=== PATIENT | female | born 1955 | race Caucasian/White ===

== ENCOUNTER 2021-03-06 23:07 | Inpatient (IN) | payer OTHER ==
[~2021-03-06] VITALS: Ht 175.3 cm; Wt 95.3 kg
[2021-03-06] MEDS ORDERED: IV NORMAL SALINE 1000 ML BAG IV ONE (23:30)
[2021-03-06] MEDS ORDERED: FUROSEMIDE 20 MG/2 ML VIAL IV ONE (23:30)
[2021-03-06] MEDS ORDERED: CEFTRIAXONE 1 G in IV DEXTROSE 5% 50 ML IV ONE (23:30)
[2021-03-06] MEDS ORDERED: ACETAMINOPHEN ES 500 MG TABLET PO ONE (23:30)
[2021-03-07 00:06] LABS: HEMATOCRIT 41.9 % (31.2-41.9); MEAN CORPUSCULAR HEMOGLOBIN 29.1 uug (24.7-32.8); MEAN CORPUSCULAR VOLUME 88.6 fL (75.5-95.3); PLATELET COUNT (AUTO) 185 K/uL (179-408)
[2021-03-07] MEDS ORDERED: ACETAMINOPHEN ES 500 MG TABLET ONE (00:10)
[2021-03-07] MEDS ORDERED: CEFTRIAXONE /D5W 50ML IVPB **ER PYXIS IV ONE ×2 (00:15→22:32)
[2021-03-07] MEDS ORDERED: FUROSEMIDE 20 MG/2 ML VIAL ONE (00:16)
[2021-03-07 00:33] LABS: POTASSIUM 4.5 mmol/L (3.5-5.1)
[2021-03-07 00:48] LABS: BILIRUBIN,DIRECT 0.1 mg/dL (0.0-0.2); BILIRUBIN,TOTAL 0.4 mg/dL (0.2-1.0); TOTAL PROTEIN, SERUM 7.2 g/dL (6.4-8.2)
[2021-03-07 01:00] LABS: *BILIRUBIN,URIN NEGATIVE (NEGATIVE); *CLARITY,URINE CLEAR (CLEAR); *COLOR,URINE YELLOW (YELLOW); *KETONES,URINE NEGATIVE (NEGATIVE); *UROBILINOGEN,URINE 0.2 E.U./dl (NORMAL); LEUKOCYTE ESTERASE ,URINE NEGATIVE (NEGATIVE); NITRITE, URINE NEGATIVE (NEGATIVE); PH,URINE 5.5 (5.0-8.0); UGLUCOSE NEGATIVE (NEGATIVE)
[2021-03-07 01:07] LABS: *BLOOD, URINE TRACE (NEGATIVE)
[2021-03-07 01:08] LABS: BACTERIA,URINE NONE SEEN /HPF (NONE SEEN); SQUAMOUS EPITHELIAL CELL,UR FEW /HPF (NONE SEEN); WBC,URINE 0-3 /HPF (0-3)
--- NOTE | 2021-03-07 01:27 | NUR ---
[facility] WAS CALLED FOR ADMISSION. WAITING FOR CALLBACK.
--- NOTE | 2021-03-07 01:29 | NUR ---
DR SERRA CALLED BACK SPOKE WITH DR CAITLIN LEUNG TO ADMIT MS
--- NOTE | 2021-03-07 01:33 | NUR ---
Unable to get list of medications from patient, needs follow up.
[2021-03-07] MEDS ORDERED: MAGNESIUM HYDROXIDE 30 ML LIQUID UDC PO PRN (01:45)
[2021-03-07] MEDS ORDERED: Z GUARD REMEDY PASTE 57 GM TUBE TOP PRN (01:45)
[2021-03-07] MEDS ORDERED: ONDANSETRON 4 MG/2 ML VIAL IV PRN (01:45)
--- NOTE | 2021-03-07 02:06 | NUR ---
No available beds on the ms/tele unit at this time will keep patient in ER.
--- NOTE | 2021-03-07 04:00 | NUR ---
Patient is resting comfortably in bed with eyes closed
[2021-03-07] MEDS: PANTOPRAZOLE SODIUM 40 MG TABLET.DR PO SCH (07:08)
[2021-03-07] MEDS ORDERED: PANTOPRAZOLE SODIUM 40 MG TABLET.DR PO ONE ×2 (07:13→11:01)
--- NOTE | 2021-03-07 07:30 | NUR ---
Pt sleeping with NAD noted at this time, peding admission to tele, pt is held in ER as there are no tele beds available per manager night report. Pt also does not have a primary nurse assigned at this time because the ER is unstaffed.
--- NOTE | 2021-03-07 08:30 | NUR ---
Report given to TAWANNA Badillo.
--- NOTE | 2021-03-07 09:10 | NUR ---
No beds/staff available for transfer at this time.
--- NOTE | 2021-03-07 09:27 | NUR ---
Emptied Brady bag, output approximately = 1550 ml
[2021-03-07] MEDS: ACETAMINOPHEN 325 MG TABLET PO PRN (10:11)
--- NOTE | 2021-03-07 10:14 | NUR ---
Echo finished bedside, labs drawn. Pt A&Ox3 states she feels "vaguely crummy." Skin warm to touch, temp 100.2, oral. Admin 650mg Tylenol.
[2021-03-07] MEDS ORDERED: ACETAMINOPHEN 325 MG TABLET ONE (10:15)
[2021-03-07] MEDS ORDERED: MORPHINE SULFATE 2 MG/1 ML DISP.SYRIN IV PRN (10:45)
[2021-03-07] MEDS ORDERED: GUAIFENESIN/DEXTROMETHORPHAN 5 ML UDC PO PRN (10:45)
[2021-03-07] MEDS ORDERED: DEXTROSE 50% 50 ML DISP.SYRIN IV PRN (10:45)
[2021-03-07] MEDS ORDERED: LABETALOL HCL 100 MG/20 ML VIAL IV PRN (10:45)
[2021-03-07] MEDS ORDERED: hydrALAZINE HCL 20 MG/1 ML VIAL IV PRN (10:45)
[2021-03-07] MEDS ORDERED: VANCOMYCIN IV 1,000 MG in IV DEXTROSE 5% 250 ML IV ONE (11:00)
[2021-03-07] MEDS ORDERED: VANCOMYCIN IV 200 ML ONE (11:00)
[2021-03-07] MEDS: BLOOD SUGAR DIAGNOSTIC 1 EACH STRIP VI SCH ×3 (11:57→21:50)
--- NOTE | 2021-03-07 12:38 | NUR ---
Pt temp down to normal. Gave pt lunch tray.
[2021-03-07] MEDS ORDERED: MAGN400T8 PO (13:01)
[2021-03-07] MEDS ORDERED: ALEN70TA80 PO (13:01)
[2021-03-07] MEDS ORDERED: CYAN-51 PO (13:01)
[2021-03-07] MEDS ORDERED: LISI10TA29 PO (13:01)
[2021-03-07] MEDS ORDERED: CALC-168 PO (13:01)
[2021-03-07] MEDS ORDERED: ASCO-375 PO (13:01)
[2021-03-07] MEDS ORDERED: ALPR0.255 PO (13:01)
[2021-03-07] MEDS ORDERED: CHOL200059 PO (13:01)
[2021-03-07] MEDS ORDERED: TOLT4CAP PO (13:01)
[2021-03-07] MEDS ORDERED: POTA-10 PO (13:01)
[2021-03-07] MEDS ORDERED: DALF10TA PO (13:01)
[2021-03-07] MEDS ORDERED: DEXT5TAB15 PO ×2 (13:01)
[2021-03-07] MEDS ORDERED: METF-440 PO (13:01)
[2021-03-07] MEDS ORDERED: FURO20TA4 PO (13:01)
[2021-03-07] MEDS ORDERED: ZOLP5TAB8 PO (13:01)
[2021-03-07] MEDS ORDERED: SIMV-46 PO (13:04)
[2021-03-07] MEDS ORDERED: BACL20TA PO (13:04)
[2021-03-07] MEDS ORDERED: DESM0.2T23 PO (13:04)
[2021-03-07] MEDS ORDERED: DIME240C2 PO (13:04)
--- NOTE | 2021-03-07 13:20 | NUR ---
Pt forgot to mention that she was also having blurry vision since yesterday, close-up, not at distance. Dr. Chu informed.
[2021-03-07] MEDS ORDERED: ZOLPIDEM 5 MG TABLET PO PRN (14:15)
[2021-03-07] MEDS ORDERED: DIMETHYL FUMARATE 240 MG PO SCH (17:00)
[2021-03-07] MEDS: TOLTERODINE LA 2 MG CAP.SR.24H PO SCH (17:42)
[2021-03-07] MEDS: BACLOFEN 20 MG TABLET PO SCH ×2 (17:42→21:48)
[2021-03-07] MEDS ORDERED: TOLTERODINE LA 2 MG CAP.SR.24H PO ONE (17:44)
--- NOTE | 2021-03-07 19:05 | NUR ---
RECEIVED REPORT FROM TAWANNA YODER. VSS. PT A/O X4, DENIES ANY PAIN/DISCOMFORT. RESTING IN BED COMFORTABLY.
--- NOTE | 2021-03-07 20:43 | NUR ---
GAVE REPORT TO TAWANNA BARRERA.
[2021-03-07] MEDS ORDERED: DALFAMPRIDINE 10 MG PO SCH (21:00)
[2021-03-07] MEDS ORDERED: CEFTRIAXONE 1 G in IV DEXTROSE 5% 50 ML IV SCH (21:00)
--- NOTE | 2021-03-07 21:15 | NUR ---
Pt. admitted to TELE 311 , under care of Dx: sepsis Belongs List completed
--- NOTE | 2021-03-07 21:15 | NUR ---
Pt. admitted to TELE 311 , under care of Dr. Oleary Dx: sepsis Belongs List completed
[2021-03-07 22:00] VITALS: BP 104/41
[2021-03-07] MEDS: INSULIN REGULAR, HUMAN 300 UNIT/3 ML VIAL SQ PRN (22:00)
--- NOTE | 2021-03-07 22:01 | NUR ---
Patient brought to Tele unit from Er via gurney accompanied by Er nurse.Dx.of sepsis.Patient awake alert x4 .Denies SOB. On RA saturating well at 97 %.Denies pain at this time. Sinus Tachy on Tele. Brady catheter in place draining well with clear yellow output.Body assessment done noted with marco. lower ext edema .Rob wrapped up on both legs .Patient refused rob wrapped to be removed.Stated her doctor supposed to get it removed or on the weekend.Iv on right hand patent and intact . No s/s of infiltration. Administered Iv ATb as ordered. No a/r noted. VSs .Will continue to monitor.Call light with in reach.
[2021-03-07] MEDS: VANCOMYCIN IV 1,000 MG in IV DEXTROSE 5% 250 ML IV SCH (23:26)
[2021-03-08 00:40] VITALS: BP 126/51
[2021-03-08] MEDS: CEFTRIAXONE 1 G in IV DEXTROSE 5% 50 ML IV SCH (00:47)
[2021-03-08] MEDS: ACETAMINOPHEN 325 MG TABLET PO PRN (00:57)
[2021-03-08 04:10] VITALS: BP 100/50
[2021-03-08] MEDS: PANTOPRAZOLE SODIUM 40 MG TABLET.DR PO SCH (06:04)
[2021-03-08] MEDS: BLOOD SUGAR DIAGNOSTIC 1 EACH STRIP VI SCH ×4 (06:35→20:33)
[2021-03-08 06:40] LABS: HEMATOCRIT 37.3 % (31.2-41.9); MEAN CORPUSCULAR HEMOGLOBIN 29.5 uug (24.7-32.8); MEAN CORPUSCULAR VOLUME 88.1 fL (75.5-95.3); PLATELET COUNT (AUTO) 152 K/uL (179-408)
[2021-03-08 07:11] LABS: CREATININE 0.8 mg/dL (0.6-1.3); PHOSPHOROUS 2.6 mg/dL (2.5-4.9)
[2021-03-08 07:21] LABS: THYROID STIMULATING HORMONE 0.501 mIU/mL (0.358-3.740)
--- NOTE | 2021-03-08 08:00 | NUR ---
Noted JUDSON LE +4 edema. PT has an jean-claude wrapped around her legs. Pt refused to have the jean-claude wrap taken out to evaluate her skin. Discussed plan of care with pt re reducing her fluid intake pt agreeable with plan of care. Call light light is within reach.
[2021-03-08] MEDS: MAGNESIUM OXIDE 400 MG TABLET PO SCH (08:46)
[2021-03-08] MEDS: BACLOFEN 20 MG TABLET PO SCH ×4 (08:46→20:23)
[2021-03-08] MEDS: CYANOCOBALAMIN 1,000 MCG TABLET PO SCH (08:46)
[2021-03-08] MEDS: ASCORBIC ACID 500 MG TABLET PO SCH (08:46)
[2021-03-08] MEDS: FUROSEMIDE 20 MG TABLET PO SCH (08:46)
[2021-03-08] MEDS: DESMOPRESSIN 0.1 MG TABLET PO SCH (08:52)
[2021-03-08] MEDS: LISINOPRIL 10 MG TABLET PO SCH (08:52)
[2021-03-08] MEDS ORDERED: POTASSIUM CHLORIDE 20 MEQ POWDER PACKET PO SCH (09:00)
[2021-03-08] MEDS ORDERED: Medication Not On Formulary EA (Potassium Chloride (K-Dur) 10 MEQ) PO SCH (09:00)
[2021-03-08] MEDS ORDERED: POTASSIUM CHLORIDE 10 MEQ TAB.PRT.SR PO SCH (09:00)
[2021-03-08] MEDS: VANCOMYCIN IV 1,000 MG in IV DEXTROSE 5% 250 ML IV SCH ×2 (11:02→23:51)
[2021-03-08] MEDS: INSULIN REGULAR, HUMAN 300 UNIT/3 ML VIAL SQ PRN ×3 (11:18→20:39)
[2021-03-08 12:00] VITALS: BP 113/52
--- NOTE | 2021-03-08 12:07 | NUR ---
PT own meds ampyra and fumera sent for pharmacy to verify. Son at bedside. Call light is within reach.
[2021-03-08] MEDS: DIMETHYL FUMARATE 240 MG PO SCH ×2 (13:06→17:04)
[2021-03-08] MEDS: AMPYRA 10 MG PO SCH ×2 (13:06→20:24)
--- NOTE | 2021-03-08 15:00 | NUR ---
Heat CT done. IV pulled out by patient. restarted IV on left hand 22gauge with good blood back flow noted.
[2021-03-08 16:00] VITALS: BP 105/46
[2021-03-08] MEDS: TOLTERODINE LA 2 MG CAP.SR.24H PO SCH (17:03)
[2021-03-08] MEDS: ALPRAZOLAM 0.25 MG TABLET PO PRN (20:24)
[2021-03-08] MEDS: SIMVASTATIN 20 MG TABLET PO SCH (20:24)
[2021-03-08 20:37] VITALS: BP 101/45
[2021-03-09] MEDS: CEFTRIAXONE 1 G in IV DEXTROSE 5% 50 ML IV SCH (00:01)
[2021-03-09 00:20] VITALS: BP 98/54
[2021-03-09] MEDS: ALPRAZOLAM 0.25 MG TABLET PO PRN (02:51)
[2021-03-09 04:32] VITALS: BP 101/50
[2021-03-09] MEDS: PANTOPRAZOLE SODIUM 40 MG TABLET.DR PO SCH (06:39)
[2021-03-09] MEDS: BLOOD SUGAR DIAGNOSTIC 1 EACH STRIP VI SCH ×4 (06:41→21:17)
--- NOTE | 2021-03-09 08:00 | NUR ---
Reinforce to pt limit fluid intake. Pt is in no acute distress. Call light is within reach.
[2021-03-09] MEDS: BACLOFEN 20 MG TABLET PO SCH ×4 (08:57→21:13)
[2021-03-09] MEDS: CYANOCOBALAMIN 1,000 MCG TABLET PO SCH (08:57)
[2021-03-09] MEDS: FUROSEMIDE 20 MG TABLET PO SCH (08:57)
[2021-03-09] MEDS: MAGNESIUM OXIDE 400 MG TABLET PO SCH (08:58)
[2021-03-09] MEDS: POTASSIUM CHLORIDE 10 MEQ TAB.PRT.SR PO SCH (08:58)
[2021-03-09] MEDS: AMPYRA 10 MG PO SCH ×2 (08:58→21:13)
[2021-03-09] MEDS: DESMOPRESSIN 0.1 MG TABLET PO SCH (08:58)
[2021-03-09] MEDS: ASCORBIC ACID 500 MG TABLET PO SCH (08:58)
[2021-03-09] MEDS ORDERED: VANCOMYCIN IV 1,250 MG in IV DEXTROSE 5% 250 ML IV SCH (09:00)
[2021-03-09] MEDS: LISINOPRIL 10 MG TABLET PO SCH (09:00)
[2021-03-09] MEDS: INSULIN REGULAR, HUMAN 300 UNIT/3 ML VIAL SQ PRN ×4 (09:18→21:18)
[2021-03-09] MEDS: DIMETHYL FUMARATE 240 MG PO SCH ×2 (09:24→17:31)
[2021-03-09] MEDS ORDERED: ZOLPIDEM 5 MG TABLET PO PRN (10:30)
--- NOTE | 2021-03-09 11:22 | NUR ---
WOUND CARE CONSULT: PT HAD PREVIOUS COMPRESSION WRAPS ON HER LOWER LEGS WHICH WERE REMOVED REVEALING SOME SKIN DISCOLORATION AND EDEMA, NO OPEN WOUNDS. WILL SEE PRN.
[2021-03-09 12:01] VITALS: BP 100/58
[2021-03-09] MEDS: CLINDAMYCIN HCL 300 MG CAPSULE PO SCH ×3 (12:59→17:30)
--- NOTE | 2021-03-09 14:13 | NUR ---
gave 1st dose cleocin at 1200 will not repeat dose 1 hr after giving meds
[2021-03-09 16:01] VITALS: BP 105/51
[2021-03-09] MEDS ORDERED: LORAZEPAM 2 MG/1 ML VIAL IV PRN (17:15)
[2021-03-09] MEDS: TOLTERODINE LA 2 MG CAP.SR.24H PO SCH (17:30)
--- NOTE | 2021-03-09 18:00 | NUR ---
Pt picked up by ambulance for MRI of Brain w/wo. Pt agreeable with test. MRI Checklist done. Gave Ativan prior to leaving secondary to pt gets anxious on closed spaces. Pt refused bs coverage for BS 150. PT is in no acute distress. Call light is within reach.
[2021-03-09 20:06] VITALS: BP 116/65
[2021-03-09] MEDS: SIMVASTATIN 20 MG TABLET PO SCH (21:13)
[2021-03-10 00:06] VITALS: BP 119/58
[2021-03-10 04:12] VITALS: BP 121/60
[2021-03-10] MEDS: PANTOPRAZOLE SODIUM 40 MG TABLET.DR PO SCH (05:34)
[2021-03-10] MEDS: BLOOD SUGAR DIAGNOSTIC 1 EACH STRIP VI SCH ×2 (06:15→11:51)
--- NOTE | 2021-03-10 06:34 | NUR ---
Pt arrived back on the unit via jacqueline @[id number]. Pt is in no acute distress.VSS. Axox x4,able to make needs known. denies any pain at the moment. Denies SOB. On RA saturating well at 97 % Sinus Rhythm on Tele. Ate 50% dinner. All due medications administered and tolerated well. Administered Ambien per pt request, slept well. Brady catheter in place draining well with clear yellow output. marco. lower ext edema, elevated with pillows.IV on right hand flushed, patent and intact. No s/s of infiltration.Will continue to monitor.Call light with in reach. Call light is within reach.will endorse to oncoming nurse
--- NOTE | 2021-03-10 08:00 | NUR ---
Reinforce to pt limit fluid intake. Pt is in no acute distress. Call light is within reach.
[2021-03-10] MEDS: INSULIN REGULAR, HUMAN 300 UNIT/3 ML VIAL SQ PRN ×2 (08:18→12:09)
[2021-03-10] MEDS: POTASSIUM CHLORIDE 10 MEQ TAB.PRT.SR PO SCH (08:32)
[2021-03-10] MEDS: BACLOFEN 20 MG TABLET PO SCH ×4 (08:33→20:17)
[2021-03-10] MEDS: ASCORBIC ACID 500 MG TABLET PO SCH (08:33)
[2021-03-10] MEDS: CYANOCOBALAMIN 1,000 MCG TABLET PO SCH (08:33)
[2021-03-10] MEDS: FUROSEMIDE 20 MG TABLET PO SCH (08:33)
[2021-03-10] MEDS: MAGNESIUM OXIDE 400 MG TABLET PO SCH (08:33)
[2021-03-10] MEDS: LISINOPRIL 10 MG TABLET PO SCH (08:37)
[2021-03-10] MEDS: DIMETHYL FUMARATE 240 MG PO SCH ×2 (08:38→17:10)
[2021-03-10] MEDS: CLINDAMYCIN HCL 300 MG CAPSULE PO SCH ×3 (08:38→16:42)
[2021-03-10] MEDS: DESMOPRESSIN 0.1 MG TABLET PO SCH (08:39)
[2021-03-10] MEDS: AMPYRA 10 MG PO SCH ×2 (08:39→20:17)
[2021-03-10 11:58] VITALS: BP 103/49
[2021-03-10] MEDS ORDERED: Patient May Use Own Med- Md Ok PO ×2 (13:34)
[2021-03-10] MEDS ORDERED: ZOLP5TAB8 PO (13:34)
[2021-03-10] MEDS ORDERED: GUAI5SYR PO (13:34)
[2021-03-10] MEDS ORDERED: SIMV10TA98 PO (13:34)
[2021-03-10] MEDS ORDERED: ACET325T53 PO (13:34)
[2021-03-10] MEDS ORDERED: PANT40TA2 PO (13:34)
[2021-03-10 16:00] VITALS: BP_SYST 92; BP_DIAS 51; BP_DIAS 53
[2021-03-10] MEDS: TOLTERODINE LA 2 MG CAP.SR.24H PO SCH (16:41)
--- NOTE | 2021-03-10 19:49 | NUR ---
pt discharge to [facility] surgical floor pt to be admitted to aru per correctional casework specialist. Discharge instructions given to pt. Pt verbalized understanding. Discharge updated pictures needs to be done and endorsed to next shift. LE's less swollen from prior 2 days. f/c intact. Pt is in no acute distress. Vaccines pt to f/u with PMD. PT c/o constipattion earlier given MOM and had LARGE BM . MOM effective.
[2021-03-10] MEDS ORDERED: SIMVASTATIN 10 MG TABLET PO SCH (21:00)
[2021-03-14] MEDS ORDERED: ALENDRONATE SODIUM 70 MG TABLET PO SCH (06:00)
== END 2021-03-10 20:23 | DRG 871 ==
LOC: ER 23:10 → TRANSITION 03-07 03:57 → TELE3 03-07 20:44
PROVIDERS: ADMIT Internal Medicine; ATTEND Internal Medicine
DX: A41.9 Sepsis, unspecified organism (principal); R53.2 Functional quadriplegia; D68.59 Other primary thrombophilia; G35 Multiple sclerosis; E78.5 Hyperlipidemia, unspecified; Z20.822 Contact with and (suspected) exposure to COVID-19; R53.1 Weakness; I10 Essential (primary) hypertension; Z74.09 Other reduced mobility; I87.8 Other specified disorders of veins; Z79.84 Long term (current) use of oral hypoglycemic drugs; E11.9 Type 2 diabetes mellitus without complications; R60.9 Edema, unspecified
CPT/HCPCS: 36415; 51702; 70030-TC; 70450; 70553; 71045; 73590; 83605; 83735; 84100; 84443; 85025; 85651; 85730; 86140; 87040; 87086; 87400; 93005; 93307; 97161; A4663; A9150; G0378; J0696; J1940; J2060; J3370; J7030; J7040; J7060

== ENCOUNTER 2021-03-10 12:13 | Inpatient (IN) | payer OTHER ==
[~2021-03-10] VITALS: Ht 175.3 cm; Wt 96.2 kg
[~2021-03-10 12:13] MED LIST: ALEN70TA80 PO; ALPR0.255 PO; ASCO-375 PO; BACL20TA PO; CALC-168 PO; CHOL200059 PO; CYAN-51 PO; DALF10TA PO; DESM0.2T23 PO; DEXT5TAB15 PO; DIME240C2 PO; FURO20TA4 PO; LISI10TA29 PO; MAGN400T8 PO; METF-440 PO; POTA-10 PO; SIMV-46 PO; TOLT4CAP PO; ZOLP5TAB8 PO
[2021-03-10] MEDS ORDERED: Patient May Use Own Med- Md Ok PO ×2 (13:34)
[2021-03-10] MEDS ORDERED: ACET325T53 PO (13:34)
[2021-03-10] MEDS ORDERED: GUAI5SYR PO (13:34)
[2021-03-10] MEDS ORDERED: PANT40TA2 PO (13:34)
[2021-03-10] MEDS ORDERED: SIMV10TA98 PO (13:34)
[2021-03-10] MEDS ORDERED: ZOLP5TAB8 PO (13:34)
[2021-03-10 20:00] VITALS: BP 106/56
[2021-03-10] MEDS ORDERED: Z GUARD REMEDY PASTE 57 GM TUBE TOP PRN (21:15)
[2021-03-11] MEDS ORDERED: ZOLPIDEM 5 MG TABLET PO PRN (01:45)
--- NOTE | 2021-03-11 02:22 | NUR ---
Pt. admitted to ARU room 311, Dr. Huang made aware of admission and made aware of med recon. Dx: Sepsis generalized weakness possible MS exacerbation Belongs List completed, skin assessed, intact BLE edema and redness, sacral redness, pictures taken and placed in chart. marco. lower ext edema, elevated with pillows. IV on right hand flushed, patent and intact. No s/s of infiltration. Axox4 no acute distress noted.VSS All due medication administered and tolerated well.Brady cath intact and draining yellow urine. pt requested Ambien, administered. Needs attended too. On bedpan with BMx2. Will continue plan of care.
[2021-03-11 04:00] VITALS: BP 114/59
[2021-03-11] MEDS ORDERED: GUAIFENESIN/DEXTROMETHORPHAN 5 ML UDC PO PRN (07:15)
[2021-03-11 08:00] VITALS: BP 110/61
[2021-03-11] MEDS ORDERED: Medication Not On Formulary EA (Calcium Carbonate/Vitamin D3 (Calcium + Vitamin D Tablet PO SCH (09:00)
[2021-03-11] MEDS ORDERED: Medication Not On Formulary EA ([Patient May Use Own Med- Md Ok] 1 EA) PO SCH ×2 (09:00)
[2021-03-11] MEDS ORDERED: Medication Not On Formulary EA (Dalfampridine (Ampyra) 10 MG) PO SCH (09:00)
[2021-03-11] MEDS ORDERED: AMPYRA 10 MG PO SCH ×2 (09:00)
[2021-03-11] MEDS ORDERED: DESMOPRESSIN ACETATE PO SCH (09:00)
[2021-03-11] MEDS ORDERED: Medication Not On Formulary EA (Potassium Chloride (K-Dur) 10 MEQ) PO SCH (09:00)
[2021-03-11] MEDS: METFORMIN HCL 500 MG TABLET PO SCH ×2 (09:58→17:52)
[2021-03-11] MEDS: CHOLECALCIFEROL 1,000 UNIT TABLET PO SCH (09:59)
[2021-03-11] MEDS: MAGNESIUM OXIDE 400 MG TABLET PO SCH (09:59)
[2021-03-11] MEDS: CALCIUM CARB/VITAMIN D 500MG-200UNITS TABLET PO SCH (09:59)
[2021-03-11] MEDS: ASCORBIC ACID 500 MG TABLET PO SCH (09:59)
[2021-03-11] MEDS: TOLTERODINE LA 2 MG CAP.SR.24H PO SCH (09:59)
[2021-03-11] MEDS: CYANOCOBALAMIN 1,000 MCG TABLET PO SCH (10:00)
[2021-03-11] MEDS: FUROSEMIDE 20 MG TABLET PO SCH (10:00)
[2021-03-11] MEDS: POTASSIUM CHLORIDE 20 MEQ POWDER PACKET PO SCH (10:00)
[2021-03-11] MEDS: BACLOFEN 20 MG TABLET PO SCH ×4 (10:00→20:22)
[2021-03-11] MEDS: LISINOPRIL 10 MG TABLET PO SCH (10:10)
[2021-03-11] MEDS: DESMOPRESSIN 0.1 MG TABLET PO SCH (10:11)
[2021-03-11] MEDS: DIMETHYL FUMARATE 240 MG PO SCH ×2 (10:18→17:52)
[2021-03-11 12:00] VITALS: BP 105/60
--- NOTE | 2021-03-11 12:16 | NUR ---
INTERDISCIPLINARY TEAM CONFERENCE
[2021-03-11 15:59] VITALS: BP 106/63
[2021-03-11 20:20] VITALS: BP 114/62
[2021-03-11] MEDS: SIMVASTATIN 10 MG TABLET PO SCH (20:22)
[2021-03-12 04:10] VITALS: BP 115/54
[2021-03-12] MEDS: PANTOPRAZOLE SODIUM 40 MG TABLET.DR PO SCH (05:37)
[2021-03-12 06:18] LABS: HEMATOCRIT 39.3 % (31.2-41.9); MEAN CORPUSCULAR HEMOGLOBIN 29.1 uug (24.7-32.8); MEAN CORPUSCULAR VOLUME 87.9 fL (75.5-95.3); PLATELET COUNT (AUTO) 205 K/uL (179-408)
[2021-03-12 06:35] LABS: CREATININE 0.7 mg/dL (0.6-1.3); MAGNESIUM 2.1 mg/dL (1.8-2.4); PHOSPHOROUS 3.6 mg/dL (2.5-4.9); POTASSIUM 3.8 mmol/L (3.5-5.1)
--- NOTE | 2021-03-12 06:36 | NUR ---
Shift End Report: Slept well. All needs attended and met. No complaint presented.Continue care as planned.
[2021-03-12 08:03] VITALS: BP 123/64
[2021-03-12] MEDS: CALCIUM CARB/VITAMIN D 500MG-200UNITS TABLET PO SCH (08:31)
[2021-03-12] MEDS: POTASSIUM CHLORIDE 20 MEQ POWDER PACKET PO SCH (08:31)
[2021-03-12] MEDS: ASCORBIC ACID 500 MG TABLET PO SCH (08:31)
[2021-03-12] MEDS: CHOLECALCIFEROL 1,000 UNIT TABLET PO SCH (08:31)
[2021-03-12] MEDS: TOLTERODINE LA 2 MG CAP.SR.24H PO SCH (08:31)
[2021-03-12] MEDS: FUROSEMIDE 20 MG TABLET PO SCH (08:31)
[2021-03-12] MEDS: METFORMIN HCL 500 MG TABLET PO SCH ×2 (08:31→17:41)
[2021-03-12] MEDS: CYANOCOBALAMIN 1,000 MCG TABLET PO SCH (08:31)
[2021-03-12] MEDS: BACLOFEN 20 MG TABLET PO SCH ×4 (08:31→21:13)
[2021-03-12] MEDS: MAGNESIUM OXIDE 400 MG TABLET PO SCH (08:31)
[2021-03-12] MEDS: DESMOPRESSIN 0.1 MG TABLET PO SCH (08:32)
[2021-03-12] MEDS: DIMETHYL FUMARATE 240 MG PO SCH ×2 (08:32→17:41)
[2021-03-12] MEDS: LISINOPRIL 10 MG TABLET PO SCH (08:32)
[2021-03-12] MEDS: HYDROCORTISONE 1% CREAM 30 GM TUBE TP PRN (13:14)
[2021-03-12 16:27] VITALS: BP 102/53
[2021-03-12 20:00] VITALS: BP 100/46
[2021-03-12] MEDS: SIMVASTATIN 10 MG TABLET PO SCH (21:13)
[2021-03-12] MEDS: AMPYRA 10 MG PO SCH (21:14)
--- NOTE | 2021-03-12 21:47 | NUR ---
Patient AOX 4 no acute distress, no c/o pain all due medication administered as ordered. provided quite and calm environment. Brady cath intact and draining yellow urine. sleeping well. room visits done. will monitor patient.
[2021-03-13 04:20] VITALS: BP 107/61
[2021-03-13] MEDS: PANTOPRAZOLE SODIUM 40 MG TABLET.DR PO SCH (06:05)
--- NOTE | 2021-03-13 06:31 | NUR ---
Patient want to sleep in morning requested. Please do not disturb until 0800 am. Patient clean and dry, safety precautions observed. Respected patient right will endorse AM nurse accordingly.
[2021-03-13 08:00] VITALS: BP 117/58
--- NOTE | 2021-03-13 08:00 | NUR ---
awake alert and oriented x 4, very pleasnt, on room air, bilateral lower extremities swollen and red, kept on pillows, denies of pain at this time, needs attended, safety measures maintained
[2021-03-13] MEDS: METFORMIN HCL 500 MG TABLET PO SCH ×2 (08:18→17:06)
[2021-03-13] MEDS: CYANOCOBALAMIN 1,000 MCG TABLET PO SCH (08:19)
[2021-03-13] MEDS: FUROSEMIDE 20 MG TABLET PO SCH (08:19)
[2021-03-13] MEDS: CALCIUM CARB/VITAMIN D 500MG-200UNITS TABLET PO SCH (08:19)
[2021-03-13] MEDS: BACLOFEN 20 MG TABLET PO SCH ×4 (08:19→19:58)
[2021-03-13] MEDS: TOLTERODINE LA 2 MG CAP.SR.24H PO SCH (08:19)
[2021-03-13] MEDS: CHOLECALCIFEROL 1,000 UNIT TABLET PO SCH (08:19)
[2021-03-13] MEDS: ASCORBIC ACID 500 MG TABLET PO SCH (08:19)
[2021-03-13] MEDS: MAGNESIUM OXIDE 400 MG TABLET PO SCH (08:19)
[2021-03-13] MEDS: AMPYRA 10 MG PO SCH ×2 (08:20→19:58)
[2021-03-13] MEDS: LISINOPRIL 10 MG TABLET PO SCH (08:20)
[2021-03-13] MEDS: DIMETHYL FUMARATE 240 MG PO SCH ×2 (08:20→16:52)
[2021-03-13] MEDS: POTASSIUM CHLORIDE 20 MEQ POWDER PACKET PO SCH (08:21)
[2021-03-13] MEDS: DESMOPRESSIN 0.1 MG TABLET PO SCH (08:21)
[2021-03-13] MEDS: HYDROCORTISONE 1% CREAM 30 GM TUBE TP PRN ×3 (08:22→19:59)
--- NOTE | 2021-03-13 12:31 | NUR ---
INDIVIDUALIZED PLAN OF CARE
--- NOTE | 2021-03-13 13:56 | NUR ---
visitors in the room
[2021-03-13 16:00] VITALS: BP 101/52
--- NOTE | 2021-03-13 18:13 | NUR ---
no distress noted, all needs attended and met, participated with her rehab, call light within reach
[2021-03-13] MEDS: SIMVASTATIN 10 MG TABLET PO SCH (19:58)
[2021-03-13 20:00] VITALS: BP 96/49
[2021-03-14] MEDS: ZOLPIDEM 5 MG TABLET PO PRN (01:09)
[2021-03-14 04:00] VITALS: BP 114/61
[2021-03-14] MEDS: ALENDRONATE SODIUM 70 MG TABLET PO SCH (05:04)
[2021-03-14] MEDS: PANTOPRAZOLE SODIUM 40 MG TABLET.DR PO SCH (06:05)
[2021-03-14 08:06] VITALS: BP 111/52
[2021-03-14] MEDS: CYANOCOBALAMIN 1,000 MCG TABLET PO SCH (08:37)
[2021-03-14] MEDS: CHOLECALCIFEROL 1,000 UNIT TABLET PO SCH (08:37)
[2021-03-14] MEDS: POTASSIUM CHLORIDE 10 MEQ TAB.PRT.SR PO SCH (08:37)
[2021-03-14] MEDS: CALCIUM CARB/VITAMIN D 500MG-200UNITS TABLET PO SCH (08:38)
[2021-03-14] MEDS: METFORMIN HCL 500 MG TABLET PO SCH ×2 (08:38→17:03)
[2021-03-14] MEDS: FUROSEMIDE 20 MG TABLET PO SCH (08:38)
[2021-03-14] MEDS: BACLOFEN 20 MG TABLET PO SCH ×4 (08:38→21:08)
[2021-03-14] MEDS: MAGNESIUM OXIDE 400 MG TABLET PO SCH (08:39)
[2021-03-14] MEDS: LISINOPRIL 10 MG TABLET PO SCH (08:39)
[2021-03-14] MEDS: TOLTERODINE LA 2 MG CAP.SR.24H PO SCH (08:39)
[2021-03-14] MEDS: ASCORBIC ACID 500 MG TABLET PO SCH (08:40)
[2021-03-14] MEDS: DESMOPRESSIN 0.1 MG TABLET PO SCH (08:43)
[2021-03-14] MEDS: AMPYRA 10 MG PO SCH ×2 (08:44→21:07)
[2021-03-14] MEDS: DIMETHYL FUMARATE 240 MG PO SCH ×2 (08:45→16:48)
[2021-03-14 15:28] VITALS: BP 114/63
--- NOTE | 2021-03-14 15:50 | NUR ---
patient is alert, oriented x4, no distress noted, tolerated PT, OT services well.
--- NOTE | 2021-03-14 16:08 | NUR ---
INDIVIDUALIZED PLAN OF CARE
[2021-03-14 20:28] VITALS: BP 119/53
[2021-03-14] MEDS: SIMVASTATIN 10 MG TABLET PO SCH (21:08)
--- NOTE | 2021-03-14 21:41 | NUR ---
Patient on bed watching TV upon initial rounds, alert and oriented x4. On RA with no respiratory distress noted. Heplock on R FA remains patent, no redness or swelling. No c/o pain or discomforts at this time. Due medications given and tolerated well. Received Ampyra 10 mg #60 from pt, will give to pharmacy vega AM. All needs attended. Call light and urinal placed within reach. Will continue to monitor. Addendum: 03/14/21 at 2145 by PATRICIA JIMENEZ RN Correction: Call light placed within reach.
[2021-03-15] MEDS: ALPRAZOLAM 0.25 MG TABLET PO PRN (04:21)
[2021-03-15 04:30] VITALS: BP 121/53
[2021-03-15] MEDS: PANTOPRAZOLE SODIUM 40 MG TABLET.DR PO SCH (06:12)
--- NOTE | 2021-03-15 06:48 | NUR ---
Patient slept throughout the night, easily arousable for care. On RA with no respiratory distress noted. No c/o pain or discomfort at this time. Xanax given PRN per pt request, tolerated well. All needs attended. Call light placed within reach. Frequent visual checks done. Will endorse to next shift for continuity of care.
--- NOTE | 2021-03-15 07:15 | NUR ---
Patient denies pain at this time. IV line intact. FC draining urine. Call light within reach.No distress identified. Will continue to monitor.
[2021-03-15 08:00] VITALS: BP 114/56
[2021-03-15] MEDS: AMPYRA 10 MG PO SCH ×3 (09:00→20:39)
[2021-03-15] MEDS: CHOLECALCIFEROL 1,000 UNIT TABLET PO SCH (11:16)
[2021-03-15] MEDS: MAGNESIUM OXIDE 400 MG TABLET PO SCH (11:17)
[2021-03-15] MEDS: CALCIUM CARB/VITAMIN D 500MG-200UNITS TABLET PO SCH (11:17)
[2021-03-15] MEDS: BACLOFEN 20 MG TABLET PO SCH ×4 (11:17→20:39)
[2021-03-15] MEDS: FUROSEMIDE 20 MG TABLET PO SCH (11:17)
[2021-03-15] MEDS: METFORMIN HCL 500 MG TABLET PO SCH ×2 (11:17→16:57)
[2021-03-15] MEDS: DIMETHYL FUMARATE 240 MG PO SCH ×2 (11:17→16:58)
[2021-03-15] MEDS: ASCORBIC ACID 500 MG TABLET PO SCH (11:18)
[2021-03-15] MEDS: CYANOCOBALAMIN 1,000 MCG TABLET PO SCH (11:18)
[2021-03-15] MEDS: TOLTERODINE LA 2 MG CAP.SR.24H PO SCH (11:18)
[2021-03-15] MEDS: LISINOPRIL 10 MG TABLET PO SCH (11:18)
[2021-03-15] MEDS: POTASSIUM CHLORIDE 10 MEQ TAB.PRT.SR PO SCH (11:18)
[2021-03-15] MEDS: DESMOPRESSIN 0.1 MG TABLET PO SCH (11:20)
[2021-03-15 16:32] VITALS: BP 104/50
--- NOTE | 2021-03-15 18:35 | NUR ---
Patient report discomfort on her left thigh, resolved after repositioning. BM noted during the shift. All due meds given. All needs attended. Kept comfortable. Call light within reach. Frequent checks done. Will continue to monitor for any significant changes.
[2021-03-15 20:15] VITALS: BP 112/44
[2021-03-15] MEDS: SIMVASTATIN 10 MG TABLET PO SCH (20:39)
[2021-03-16 04:12] VITALS: BP 114/58
--- NOTE | 2021-03-16 06:30 | NUR ---
Patient stated cramps on her legs was better, denies discomfort at the end of the shift. Frequent monitoring done. All needs attended and due meds given as ordered. Will endorse to the next shift. Addendum: 03/16/21 at 0654 by ROMARIO RAMIREZ RN Patient refused to take Pantoprazole for AM medication. Will endorse to the next shift.
[2021-03-16] MEDS: PANTOPRAZOLE SODIUM 40 MG TABLET.DR PO SCH (07:00)
[2021-03-16 08:00] VITALS: BP 114/59
[2021-03-16] MEDS: TOLTERODINE LA 2 MG CAP.SR.24H PO SCH (09:26)
[2021-03-16] MEDS: METFORMIN HCL 500 MG TABLET PO SCH ×2 (09:26→18:27)
[2021-03-16] MEDS: CALCIUM CARB/VITAMIN D 500MG-200UNITS TABLET PO SCH (09:26)
[2021-03-16] MEDS: ASCORBIC ACID 500 MG TABLET PO SCH (09:26)
[2021-03-16] MEDS: BACLOFEN 20 MG TABLET PO SCH ×4 (09:27→20:36)
[2021-03-16] MEDS: MAGNESIUM OXIDE 400 MG TABLET PO SCH (09:27)
[2021-03-16] MEDS: FUROSEMIDE 20 MG TABLET PO SCH (09:27)
[2021-03-16] MEDS: CYANOCOBALAMIN 1,000 MCG TABLET PO SCH (09:27)
[2021-03-16] MEDS: POTASSIUM CHLORIDE 10 MEQ TAB.PRT.SR PO SCH (09:27)
[2021-03-16] MEDS: AMPYRA 10 MG PO SCH ×2 (09:32→20:36)
[2021-03-16] MEDS: DIMETHYL FUMARATE 240 MG PO SCH ×2 (09:32→18:28)
[2021-03-16] MEDS: DESMOPRESSIN 0.1 MG TABLET PO SCH (09:33)
[2021-03-16] MEDS: LISINOPRIL 10 MG TABLET PO SCH (09:34)
[2021-03-16] MEDS: CHOLECALCIFEROL 1,000 UNIT TABLET PO SCH (10:05)
[2021-03-16 16:39] VITALS: BP 105/50
--- NOTE | 2021-03-16 19:30 | NUR ---
RECEIVED PT AWAKE, ALERT AND ORIENTEDX4. PT IN NO ACUTE RESPIRATORY DISTRESS. IV INTACT. PT COMPLAIN OF LEG PAIN. SAFETY AND COMFORT PROVIDED. WILL CONTINUE TO MONITOR.
--- NOTE | 2021-03-16 19:31 | NUR ---
FERNANDES CATHETER INTACT AND DRAINING WELL. REPOSITIONING OF PT LEG HELP IN HER LEG PAIN.
[2021-03-16] MEDS: SIMVASTATIN 10 MG TABLET PO SCH (20:36)
[2021-03-16 20:49] VITALS: BP 100/43
[2021-03-16] MEDS: ZOLPIDEM 5 MG TABLET PO PRN (22:39)
--- NOTE | 2021-03-16 23:45 | NUR ---
Ativan given prn at 2239h. Pt tolerated it well. Pt sleeping. Will continue to monitor.
[2021-03-17 04:35] VITALS: BP 103/55
--- NOTE | 2021-03-17 05:45 | NUR ---
PT SLEPT INTERMITTENTLY. PT IN NO ACUTE DISTRESS. IV INTACT. SAFETY AND COMFORT PROVIDED. PT TURNED AND REPOSITIONED. SAFETY AND COMFORT PROVIDED. WILL ENDORSE TO INCOMING NURSE FOR CONTINUITY OF CARE.
[2021-03-17] MEDS: PANTOPRAZOLE SODIUM 40 MG TABLET.DR PO SCH (06:04)
[2021-03-17 07:58] VITALS: BP 108/55
[2021-03-17] MEDS: METFORMIN HCL 500 MG TABLET PO SCH ×2 (08:29→19:02)
[2021-03-17] MEDS: MAGNESIUM OXIDE 400 MG TABLET PO SCH (08:29)
[2021-03-17] MEDS: POTASSIUM CHLORIDE 10 MEQ TAB.PRT.SR PO SCH (08:29)
[2021-03-17] MEDS: CHOLECALCIFEROL 1,000 UNIT TABLET PO SCH (08:29)
[2021-03-17] MEDS: LISINOPRIL 10 MG TABLET PO SCH (08:29)
[2021-03-17] MEDS: ASCORBIC ACID 500 MG TABLET PO SCH (08:29)
[2021-03-17] MEDS: CYANOCOBALAMIN 1,000 MCG TABLET PO SCH (08:29)
[2021-03-17] MEDS: FUROSEMIDE 20 MG TABLET PO SCH (08:29)
[2021-03-17] MEDS: CALCIUM CARB/VITAMIN D 500MG-200UNITS TABLET PO SCH (08:29)
[2021-03-17] MEDS: TOLTERODINE LA 2 MG CAP.SR.24H PO SCH (08:29)
[2021-03-17] MEDS: BACLOFEN 20 MG TABLET PO SCH ×4 (08:29→20:07)
[2021-03-17] MEDS: AMPYRA 10 MG PO SCH ×2 (08:30→20:07)
[2021-03-17] MEDS: DIMETHYL FUMARATE 240 MG PO SCH ×2 (08:30→16:12)
[2021-03-17] MEDS: DESMOPRESSIN 0.1 MG TABLET PO SCH (08:31)
[2021-03-17 16:00] VITALS: BP 111/59
[2021-03-17] MEDS: SIMVASTATIN 10 MG TABLET PO SCH (20:07)
--- NOTE | 2021-03-18 06:01 | NUR ---
Pt denies pain or SOB. No distress noted. Pt slept throughout the night. Able to make needs known. Safety and comfort provided. No other issues or concerns at this time, will endorse to day shift.
[2021-03-18] MEDS: ALPRAZOLAM 0.25 MG TABLET PO PRN (06:19)
[2021-03-18] MEDS: PANTOPRAZOLE SODIUM 40 MG TABLET.DR PO SCH (06:19)
[2021-03-18 08:00] VITALS: BP 125/62
[2021-03-18] MEDS: CYANOCOBALAMIN 1,000 MCG TABLET PO SCH (09:25)
[2021-03-18] MEDS: ASCORBIC ACID 500 MG TABLET PO SCH (09:25)
[2021-03-18] MEDS: TOLTERODINE LA 2 MG CAP.SR.24H PO SCH (09:25)
[2021-03-18] MEDS: MAGNESIUM OXIDE 400 MG TABLET PO SCH (09:25)
[2021-03-18] MEDS: BACLOFEN 20 MG TABLET PO SCH ×4 (09:26→20:37)
[2021-03-18] MEDS: METFORMIN HCL 500 MG TABLET PO SCH ×2 (09:26→17:42)
[2021-03-18] MEDS: CHOLECALCIFEROL 1,000 UNIT TABLET PO SCH (09:26)
[2021-03-18] MEDS: CALCIUM CARB/VITAMIN D 500MG-200UNITS TABLET PO SCH (09:26)
[2021-03-18] MEDS: LISINOPRIL 10 MG TABLET PO SCH (09:27)
[2021-03-18] MEDS: FUROSEMIDE 20 MG TABLET PO SCH (09:27)
[2021-03-18] MEDS: DESMOPRESSIN 0.1 MG TABLET PO SCH (09:28)
[2021-03-18] MEDS: AMPYRA 10 MG PO SCH ×2 (09:29→20:37)
[2021-03-18] MEDS: DIMETHYL FUMARATE 240 MG PO SCH ×2 (09:29→17:43)
[2021-03-18] MEDS: POTASSIUM CHLORIDE 10 MEQ TAB.PRT.SR PO SCH (09:33)
--- NOTE | 2021-03-18 13:33 | NUR ---
INTERDISCIPLINARY TEAM CONFERENCE
[2021-03-18 16:04] VITALS: BP 101/53
[2021-03-18] MEDS: SIMVASTATIN 10 MG TABLET PO SCH (20:37)
[2021-03-18 20:41] VITALS: BP 104/43
--- NOTE | 2021-03-18 22:56 | NUR ---
Patient on bed watching TV, alert and oriented x4. On RA with no respiratory distress noted. No c/o pain or discomforts at this time. Due medications given and tolerated well. All needs attended. Call light placed within reach. Will continue to monitor.
[2021-03-19 04:25] VITALS: BP 102/52
[2021-03-19] MEDS: ALPRAZOLAM 0.25 MG TABLET PO PRN (04:40)
[2021-03-19] MEDS: PANTOPRAZOLE SODIUM 40 MG TABLET.DR PO SCH (06:00)
--- NOTE | 2021-03-19 06:36 | NUR ---
Patient slept throughout the night, easily arousable for care. On RA with no respiratory distress noted. No c/o pain or discomforts at this time. Xanax PRN given as requested. All needs attended. Call light placed within reach. Frequent visual checks done. Will endorse for continuity of care.
[2021-03-19] MEDS: ASCORBIC ACID 500 MG TABLET PO SCH (08:16)
[2021-03-19] MEDS: POTASSIUM CHLORIDE 10 MEQ TAB.PRT.SR PO SCH (08:16)
[2021-03-19] MEDS: TOLTERODINE LA 2 MG CAP.SR.24H PO SCH (08:16)
[2021-03-19] MEDS: CHOLECALCIFEROL 1,000 UNIT TABLET PO SCH (08:16)
[2021-03-19] MEDS: AMPYRA 10 MG PO SCH ×2 (08:16→20:14)
[2021-03-19] MEDS: DESMOPRESSIN 0.1 MG TABLET PO SCH (08:16)
[2021-03-19] MEDS: DIMETHYL FUMARATE 240 MG PO SCH ×2 (08:16→17:01)
[2021-03-19] MEDS: CYANOCOBALAMIN 1,000 MCG TABLET PO SCH (08:16)
[2021-03-19] MEDS: BACLOFEN 20 MG TABLET PO SCH ×4 (08:16→20:14)
[2021-03-19] MEDS: FUROSEMIDE 20 MG TABLET PO SCH (08:17)
[2021-03-19] MEDS: CALCIUM CARB/VITAMIN D 500MG-200UNITS TABLET PO SCH (08:17)
[2021-03-19] MEDS: MAGNESIUM OXIDE 400 MG TABLET PO SCH (08:17)
[2021-03-19] MEDS: METFORMIN HCL 500 MG TABLET PO SCH ×2 (08:17→17:01)
[2021-03-19 08:23] VITALS: BP 92/58
[2021-03-19] MEDS: LISINOPRIL 10 MG TABLET PO SCH (09:00)
[2021-03-19 11:27] VITALS: BP 96/57
[2021-03-19 15:20] VITALS: BP 114/59
[2021-03-19 20:00] VITALS: BP 111/58
[2021-03-19] MEDS: SIMVASTATIN 10 MG TABLET PO SCH (20:14)
[2021-03-19] MEDS: MELATONIN 3 MG TABLET PO PRN (21:08)
--- NOTE | 2021-03-19 21:18 | NUR ---
Received pt on bed, alert and oriented x4. On RA with no respiratory distress noted. No c/o pain or discomfort at this time. Due medications given and tolerated well. Melatonin PRN given per requested. Assisted in turning and repositioning. All needs attended. Call light placed within reach. Will continue to monitor.
[2021-03-20 04:00] VITALS: BP 116/55
[2021-03-20] MEDS: PANTOPRAZOLE SODIUM 40 MG TABLET.DR PO SCH (06:00)
--- NOTE | 2021-03-20 06:24 | NUR ---
Patient verbalized sleeping longer after Melatonin PRN given. On RA with no respiratory distress noted. No c/o pain or discomforts at this time. All needs attended. Call light placed within reach. Frequent visual checks done. Will endorse for continuity of care.
[2021-03-20 07:57] VITALS: BP 106/56
[2021-03-20] MEDS: LISINOPRIL 10 MG TABLET PO SCH (08:10)
[2021-03-20] MEDS: CYANOCOBALAMIN 1,000 MCG TABLET PO SCH (08:10)
[2021-03-20] MEDS: MAGNESIUM OXIDE 400 MG TABLET PO SCH (08:10)
[2021-03-20] MEDS: TOLTERODINE LA 2 MG CAP.SR.24H PO SCH (08:10)
[2021-03-20] MEDS: ASCORBIC ACID 500 MG TABLET PO SCH (08:10)
[2021-03-20] MEDS: METFORMIN HCL 500 MG TABLET PO SCH ×2 (08:10→17:10)
[2021-03-20] MEDS: CHOLECALCIFEROL 1,000 UNIT TABLET PO SCH (08:10)
[2021-03-20] MEDS: BACLOFEN 20 MG TABLET PO SCH ×4 (08:10→20:44)
[2021-03-20] MEDS: POTASSIUM CHLORIDE 10 MEQ TAB.PRT.SR PO SCH (08:10)
[2021-03-20] MEDS: CALCIUM CARB/VITAMIN D 500MG-200UNITS TABLET PO SCH (08:10)
[2021-03-20] MEDS: FUROSEMIDE 20 MG TABLET PO SCH (08:11)
[2021-03-20] MEDS: AMPYRA 10 MG PO SCH ×2 (08:11→20:47)
[2021-03-20] MEDS: DESMOPRESSIN 0.1 MG TABLET PO SCH (08:11)
[2021-03-20] MEDS: DIMETHYL FUMARATE 240 MG PO SCH ×2 (08:11→16:46)
[2021-03-20 16:02] VITALS: BP 121/54
[2021-03-20] MEDS: MIRALAX 17 GM POWD.PACK PO SCH (16:18)
[2021-03-20] MEDS: SIMVASTATIN 10 MG TABLET PO SCH (20:44)
[2021-03-20] MEDS: DOCUSATE SODIUM 100 MG CAPSULE PO SCH (20:45)
[2021-03-20] MEDS: MELATONIN 3 MG TABLET PO PRN (20:49)
[2021-03-21] MEDS: ALPRAZOLAM 0.25 MG TABLET PO PRN (03:06)
[2021-03-21] MEDS: PANTOPRAZOLE SODIUM 40 MG TABLET.DR PO SCH (06:30)
[2021-03-21] MEDS: ALENDRONATE SODIUM 70 MG TABLET PO SCH (06:30)
[2021-03-21] MEDS: CALCIUM CARB/VITAMIN D 500MG-200UNITS TABLET PO SCH (08:07)
[2021-03-21] MEDS: BACLOFEN 20 MG TABLET PO SCH ×4 (08:07→20:16)
[2021-03-21] MEDS: DIMETHYL FUMARATE 240 MG PO SCH ×2 (08:07→16:21)
[2021-03-21] MEDS: AMPYRA 10 MG PO SCH ×2 (08:07→20:20)
[2021-03-21] MEDS: TOLTERODINE LA 2 MG CAP.SR.24H PO SCH (08:07)
[2021-03-21] MEDS: FUROSEMIDE 20 MG TABLET PO SCH (08:07)
[2021-03-21] MEDS: METFORMIN HCL 500 MG TABLET PO SCH ×2 (08:07→17:04)
[2021-03-21] MEDS: CYANOCOBALAMIN 1,000 MCG TABLET PO SCH (08:07)
[2021-03-21] MEDS: DESMOPRESSIN 0.1 MG TABLET PO SCH (08:07)
[2021-03-21] MEDS: MIRALAX 17 GM POWD.PACK PO SCH (08:07)
[2021-03-21] MEDS: ASCORBIC ACID 500 MG TABLET PO SCH (08:08)
[2021-03-21] MEDS: LISINOPRIL 10 MG TABLET PO SCH (08:08)
[2021-03-21] MEDS: CHOLECALCIFEROL 1,000 UNIT TABLET PO SCH (08:08)
[2021-03-21] MEDS: POTASSIUM CHLORIDE 10 MEQ TAB.PRT.SR PO SCH (08:08)
[2021-03-21] MEDS: MAGNESIUM OXIDE 400 MG TABLET PO SCH (08:08)
[2021-03-21 08:24] VITALS: BP 119/68
[2021-03-21 14:43] VITALS: BP 111/60
--- NOTE | 2021-03-21 19:30 | NUR ---
RECEIVED PT AWAKE, ALERT AND ORIENTEDX4. PT IN NO ACUTE DISTRESS. PT CAN MAKE HER NEEDS KNOWN. SAFETY AND COMFORT PROVIDED. WILL CONTINUE TO MONITOR.
[2021-03-21 20:16] VITALS: BP 98/44
[2021-03-21] MEDS: DOCUSATE SODIUM 100 MG CAPSULE PO SCH (20:16)
[2021-03-21] MEDS: SIMVASTATIN 10 MG TABLET PO SCH (20:17)
[2021-03-22] MEDS: MELATONIN 3 MG TABLET PO PRN (02:32)
[2021-03-22 05:03] VITALS: BP 107/55
--- NOTE | 2021-03-22 06:09 | NUR ---
PT SLEEP INTERMITTENTLY. PT IN NO ACUTE DISTRESS. PRESCRIBED MEDICATION GIVEN AND PT TOLERATED IT WELL SAFETY AND COMFORT PROVIDED. WILL ENDORSE TO INCOMING NURSE FOR CONTINUITY OF CARE.
[2021-03-22] MEDS: PANTOPRAZOLE SODIUM 40 MG TABLET.DR PO SCH (06:16)
[2021-03-22 08:00] VITALS: BP 103/58
[2021-03-22] MEDS: DIMETHYL FUMARATE 240 MG PO SCH ×2 (08:06→16:36)
[2021-03-22] MEDS: POTASSIUM CHLORIDE 10 MEQ TAB.PRT.SR PO SCH (08:06)
[2021-03-22] MEDS: METFORMIN HCL 500 MG TABLET PO SCH ×2 (08:06→17:06)
[2021-03-22] MEDS: ASCORBIC ACID 500 MG TABLET PO SCH (08:06)
[2021-03-22] MEDS: DESMOPRESSIN 0.1 MG TABLET PO SCH (08:06)
[2021-03-22] MEDS: AMPYRA 10 MG PO SCH ×2 (08:06→21:00)
[2021-03-22] MEDS: MAGNESIUM OXIDE 400 MG TABLET PO SCH (08:06)
[2021-03-22] MEDS: BACLOFEN 20 MG TABLET PO SCH ×4 (08:06→21:00)
[2021-03-22] MEDS: CYANOCOBALAMIN 1,000 MCG TABLET PO SCH (08:06)
[2021-03-22] MEDS: TOLTERODINE LA 2 MG CAP.SR.24H PO SCH (08:06)
[2021-03-22] MEDS: CHOLECALCIFEROL 1,000 UNIT TABLET PO SCH (08:06)
[2021-03-22] MEDS: CALCIUM CARB/VITAMIN D 500MG-200UNITS TABLET PO SCH (08:06)
[2021-03-22] MEDS: FUROSEMIDE 20 MG TABLET PO SCH (08:07)
[2021-03-22] MEDS: MIRALAX 17 GM POWD.PACK PO SCH (08:07)
[2021-03-22] MEDS: LISINOPRIL 10 MG TABLET PO SCH (08:07)
[2021-03-22 16:18] VITALS: BP 91/41
--- NOTE | 2021-03-22 19:25 | NUR ---
RECEIVED PT AWAKE, ALERT AND ORIENTEDX4. PT IN NO ACUTE DISTRESS. SAFETY AND COMFORT PROVIDED. WILL CONTINUE TO MONITOR.
[2021-03-22 20:06] VITALS: BP 98/55
[2021-03-22] MEDS: SIMVASTATIN 10 MG TABLET PO SCH (21:01)
[2021-03-22] MEDS: DOCUSATE SODIUM 100 MG CAPSULE PO SCH (21:01)
[2021-03-22] MEDS: ALPRAZOLAM 0.25 MG TABLET PO PRN (21:13)
[2021-03-22] MEDS: ACETAMINOPHEN 325 MG TABLET PO PRN (21:13)
[2021-03-23] MEDS: ZOLPIDEM 5 MG TABLET PO PRN (01:48)
--- NOTE | 2021-03-23 05:40 | NUR ---
PT SLEPT INTERMITTENTLY. PT IN NO ACUTE DISTRESS. PRESCRIBED MEDICATION GIVEN AND PT TOLERATED IT WELL. FERNANDES CATHETER INTACT AND DRAINING WELL. SAFETY AND COMFORT PROVIDED. ALL NEEDS ARE MET. WILL CONTINUE TO MONITOR.
[2021-03-23 06:04] VITALS: BP 97/55
[2021-03-23] MEDS: PANTOPRAZOLE SODIUM 40 MG TABLET.DR PO SCH (06:08)
[2021-03-23 08:00] VITALS: BP 100/56
[2021-03-23] MEDS: DESMOPRESSIN 0.1 MG TABLET PO SCH (08:10)
[2021-03-23] MEDS: ASCORBIC ACID 500 MG TABLET PO SCH (08:11)
[2021-03-23] MEDS: CALCIUM CARB/VITAMIN D 500MG-200UNITS TABLET PO SCH (08:11)
[2021-03-23] MEDS: CYANOCOBALAMIN 1,000 MCG TABLET PO SCH (08:11)
[2021-03-23] MEDS: BACLOFEN 20 MG TABLET PO SCH ×4 (08:11→20:27)
[2021-03-23] MEDS: LISINOPRIL 10 MG TABLET PO SCH (08:11)
[2021-03-23] MEDS: MAGNESIUM OXIDE 400 MG TABLET PO SCH (08:11)
[2021-03-23] MEDS: DIMETHYL FUMARATE 240 MG PO SCH ×2 (08:11→16:20)
[2021-03-23] MEDS: FUROSEMIDE 20 MG TABLET PO SCH (08:11)
[2021-03-23] MEDS: AMPYRA 10 MG PO SCH ×2 (08:11→20:28)
[2021-03-23] MEDS: CHOLECALCIFEROL 1,000 UNIT TABLET PO SCH (08:11)
[2021-03-23] MEDS: MIRALAX 17 GM POWD.PACK PO SCH (08:12)
[2021-03-23] MEDS: POTASSIUM CHLORIDE 10 MEQ TAB.PRT.SR PO SCH (08:42)
[2021-03-23] MEDS: TOLTERODINE LA 2 MG CAP.SR.24H PO SCH (08:42)
[2021-03-23] MEDS: METFORMIN HCL 500 MG TABLET PO SCH ×2 (08:48→17:09)
[2021-03-23 16:14] VITALS: BP 105/50
--- NOTE | 2021-03-23 19:45 | NUR ---
Patient awake in bed. a/o x4. vss. No c/o pain at this time. No resp. distress noted. F/c intact and draining to gravity. Call light in reach. all needs attended, will continue to monitor and assess.
[2021-03-23 20:15] VITALS: BP 95/47
[2021-03-23] MEDS: SIMVASTATIN 10 MG TABLET PO SCH (20:27)
[2021-03-23] MEDS: DOCUSATE SODIUM 100 MG CAPSULE PO SCH (20:27)
[2021-03-23] MEDS: ALPRAZOLAM 0.25 MG TABLET PO PRN (20:27)
[2021-03-23] MEDS: ACETAMINOPHEN 325 MG TABLET PO PRN (20:28)
[2021-03-24 04:15] VITALS: BP 100/50
[2021-03-24] MEDS: PANTOPRAZOLE SODIUM 40 MG TABLET.DR PO SCH (06:27)
[2021-03-24 07:30] VITALS: BP 109/52
[2021-03-24] MEDS: METFORMIN HCL 500 MG TABLET PO SCH ×2 (08:10→17:01)
[2021-03-24] MEDS: CHOLECALCIFEROL 1,000 UNIT TABLET PO SCH (08:10)
[2021-03-24] MEDS: DIMETHYL FUMARATE 240 MG PO SCH ×2 (08:10→16:09)
[2021-03-24] MEDS: CALCIUM CARB/VITAMIN D 500MG-200UNITS TABLET PO SCH (08:10)
[2021-03-24] MEDS: DESMOPRESSIN 0.1 MG TABLET PO SCH (08:10)
[2021-03-24] MEDS: AMPYRA 10 MG PO SCH ×2 (08:10→20:04)
[2021-03-24] MEDS: POTASSIUM CHLORIDE 10 MEQ TAB.PRT.SR PO SCH (08:10)
[2021-03-24] MEDS: TOLTERODINE LA 2 MG CAP.SR.24H PO SCH (08:11)
[2021-03-24] MEDS: FUROSEMIDE 20 MG TABLET PO SCH (08:11)
[2021-03-24] MEDS: ASCORBIC ACID 500 MG TABLET PO SCH (08:11)
[2021-03-24] MEDS: MAGNESIUM OXIDE 400 MG TABLET PO SCH (08:11)
[2021-03-24] MEDS: CYANOCOBALAMIN 1,000 MCG TABLET PO SCH (08:11)
[2021-03-24] MEDS: LISINOPRIL 10 MG TABLET PO SCH (08:11)
[2021-03-24] MEDS: MIRALAX 17 GM POWD.PACK PO SCH (08:11)
[2021-03-24] MEDS: BACLOFEN 20 MG TABLET PO SCH ×4 (08:11→20:02)
[2021-03-24 15:42] VITALS: BP 108/53
[2021-03-24] MEDS: DOCUSATE SODIUM 100 MG CAPSULE PO SCH (20:02)
[2021-03-24] MEDS: SIMVASTATIN 10 MG TABLET PO SCH (20:02)
[2021-03-24 20:09] VITALS: BP 108/48
[2021-03-25] MEDS: ZOLPIDEM 5 MG TABLET PO PRN (00:46)
[2021-03-25 04:10] VITALS: BP 111/57
[2021-03-25] MEDS: PANTOPRAZOLE SODIUM 40 MG TABLET.DR PO SCH (06:01)
[2021-03-25 07:35] VITALS: BP 117/61
[2021-03-25] MEDS: CHOLECALCIFEROL 1,000 UNIT TABLET PO SCH (09:00)
[2021-03-25] MEDS: METFORMIN HCL 500 MG TABLET PO SCH ×2 (09:00→17:07)
[2021-03-25] MEDS: LISINOPRIL 10 MG TABLET PO SCH (09:00)
[2021-03-25] MEDS: CYANOCOBALAMIN 1,000 MCG TABLET PO SCH (09:00)
[2021-03-25] MEDS: BACLOFEN 20 MG TABLET PO SCH ×4 (09:01→20:39)
[2021-03-25] MEDS: TOLTERODINE LA 2 MG CAP.SR.24H PO SCH (09:01)
[2021-03-25] MEDS: CALCIUM CARB/VITAMIN D 500MG-200UNITS TABLET PO SCH (09:01)
[2021-03-25] MEDS: FUROSEMIDE 20 MG TABLET PO SCH (09:01)
[2021-03-25] MEDS: MIRALAX 17 GM POWD.PACK PO SCH (09:01)
[2021-03-25] MEDS: ASCORBIC ACID 500 MG TABLET PO SCH (09:01)
[2021-03-25] MEDS: POTASSIUM CHLORIDE 10 MEQ TAB.PRT.SR PO SCH (09:01)
[2021-03-25] MEDS: MAGNESIUM OXIDE 400 MG TABLET PO SCH (09:01)
[2021-03-25] MEDS: AMPYRA 10 MG PO SCH ×2 (09:04→20:42)
[2021-03-25] MEDS: DIMETHYL FUMARATE 240 MG PO SCH ×2 (09:04→17:08)
[2021-03-25] MEDS: DESMOPRESSIN 0.1 MG TABLET PO SCH (09:04)
--- NOTE | 2021-03-25 15:21 | NUR ---
INTERDISCIPLINARY TEAM CONFERENCE
[2021-03-25 16:00] VITALS: BP 110/50
--- NOTE | 2021-03-25 18:08 | NUR ---
Received patient alert/oriented x4, FC intact and draining well. Noted with BMx2. Denies pain. No distress identified. Frequent visual check done. Kept call light within reach Assisted with ADLs. All needs attended. Kept environment safe. All due meds given as ordered. Will endorse to the next shift for continuity of care.
[2021-03-25 20:00] VITALS: BP 105/52
[2021-03-25] MEDS: DOCUSATE SODIUM 100 MG CAPSULE PO SCH (20:39)
[2021-03-25] MEDS: SIMVASTATIN 10 MG TABLET PO SCH (20:40)
[2021-03-25] MEDS: ACETAMINOPHEN 325 MG TABLET PO PRN (20:41)
[2021-03-25 22:01] LABS: *BILIRUBIN,URIN NEGATIVE (NEGATIVE); *CLARITY,URINE CLEAR (CLEAR); *COLOR,URINE YELLOW (YELLOW); *KETONES,URINE TRACE (NEGATIVE); *UROBILINOGEN,URINE 0.2 E.U./dl (NORMAL); LEUKOCYTE ESTERASE ,URINE NEGATIVE (NEGATIVE); NITRITE, URINE NEGATIVE (NEGATIVE); PH,URINE 5.5 (5.0-8.0); UGLUCOSE NEGATIVE (NEGATIVE)
[2021-03-25 22:02] LABS: *BLOOD, URINE NEGATIVE (NEGATIVE)
[2021-03-25 22:04] LABS: BACTERIA,URINE NONE SEEN /HPF (NONE SEEN); RBC,URINE 0-3 /HPF (0-3); SQUAMOUS EPITHELIAL CELL,UR FEW /HPF (NONE SEEN); URINE AMORPHOUS URATE FEW /HPF
[2021-03-26] MEDS: ZOLPIDEM 5 MG TABLET PO PRN (02:20)
[2021-03-26 04:00] VITALS: BP 101/58
[2021-03-26] MEDS: PANTOPRAZOLE SODIUM 40 MG TABLET.DR PO SCH (06:10)
--- NOTE | 2021-03-26 06:19 | NUR ---
Received patient on bed with no respiratory distress upon initial rounds. She is alert/oriented x4, able to make needs known. Denies pain and discomfort. FC draining well with clear, yellowish urine. Ambien PRN given and noted effective. All needs attended. Call light placed within reach. Frequent visual checks done. Will endorse to next shift for continuity of care.
[2021-03-26 06:35] LABS: HEMATOCRIT 36.5 % (31.2-41.9); MEAN CORPUSCULAR HEMOGLOBIN 29.4 uug (24.7-32.8); PLATELET COUNT (AUTO) 322 K/uL (179-408)
[2021-03-26 07:23] LABS: BILIRUBIN,TOTAL 0.4 mg/dL (0.2-1.0); CREATININE 0.7 mg/dL (0.6-1.3); MAGNESIUM 1.8 mg/dL (1.8-2.4); PHOSPHOROUS 3.6 mg/dL (2.5-4.9); POTASSIUM 4.2 mmol/L (3.5-5.1); TOTAL PROTEIN, SERUM 6.3 g/dL (6.4-8.2)
[2021-03-26 07:46] VITALS: BP 99/59
[2021-03-26] MEDS: CALCIUM CARB/VITAMIN D 500MG-200UNITS TABLET PO SCH (08:36)
[2021-03-26] MEDS: CYANOCOBALAMIN 1,000 MCG TABLET PO SCH (08:36)
[2021-03-26] MEDS: METFORMIN HCL 500 MG TABLET PO SCH (08:37)
[2021-03-26] MEDS: CHOLECALCIFEROL 1,000 UNIT TABLET PO SCH (08:37)
[2021-03-26] MEDS: ASCORBIC ACID 500 MG TABLET PO SCH (08:37)
[2021-03-26] MEDS: MIRALAX 17 GM POWD.PACK PO SCH (08:38)
[2021-03-26] MEDS: POTASSIUM CHLORIDE 10 MEQ TAB.PRT.SR PO SCH (08:41)
[2021-03-26] MEDS: BACLOFEN 20 MG TABLET PO SCH ×2 (08:42→14:28)
[2021-03-26] MEDS: MAGNESIUM OXIDE 400 MG TABLET PO SCH (08:42)
[2021-03-26] MEDS: AMPYRA 10 MG PO SCH (08:43)
[2021-03-26] MEDS: DIMETHYL FUMARATE 240 MG PO SCH (08:43)
[2021-03-26] MEDS: TOLTERODINE LA 2 MG CAP.SR.24H PO SCH (08:43)
[2021-03-26] MEDS: FUROSEMIDE 20 MG TABLET PO SCH (08:44)
[2021-03-26] MEDS: DESMOPRESSIN 0.1 MG TABLET PO SCH (08:44)
[2021-03-26] MEDS: LISINOPRIL 10 MG TABLET PO SCH (08:44)
[2021-03-26 16:00] VITALS: BP 98/56
[2021-03-27] MEDS ORDERED: LISINOPRIL 5 MG TABLET PO SCH (09:00)
== END 2021-03-26 16:50 | DRG 58 ==
PROVIDERS: ADMIT Physical Medicine & Rehabilitation Pain Medicine; ATTEND Physical Medicine & Rehabilitation
DX: G35 Multiple sclerosis (principal); A41.9 Sepsis, unspecified organism; D68.59 Other primary thrombophilia; L03.115 Cellulitis of right lower limb; L03.116 Cellulitis of left lower limb; Z86.19 Personal history of other infectious and parasitic diseases; R53.1 Weakness; E11.65 Type 2 diabetes mellitus with hyperglycemia; E78.5 Hyperlipidemia, unspecified; I10 Essential (primary) hypertension; I87.8 Other specified disorders of veins; E66.01 Morbid (severe) obesity due to excess calories; G82.20 Paraplegia, unspecified; M21.379 Foot drop, unspecified foot; L30.9 Dermatitis, unspecified; N31.9 Neuromuscular dysfunction of bladder, unspecified; G47.9 Sleep disorder, unspecified; Z88.0 Allergy status to penicillin; Z20.822 Contact with and (suspected) exposure to COVID-19
CPT/HCPCS: 36415; 71045; 83735; 84100; 85025; 87086; 97161; A6209; J8499